=== PATIENT | female | born 1980 | race Caucasian/White ===

== ENCOUNTER 2016-05-25 05:01 | Emergency (ER) | payer MEDICAID ==
[~2016-05-25 05:01] MED LIST: ADVIL200 M1 PO; ANTIBIOTIC; CIPRO; CIPRO500 MG PO; CYCLOBENZAPRINE5 M1 PO; FLAGYL500 MG PO; FLEXERIL10 MG PO; HYDROCODON-ACE1 EA16 PO; IBUPROFEN; IBUPROFEN800 M1 PO; NO MEDS; NORCO 5/325 TAB1 TAB; NORCO 5/325 TAB1 TAB PO; OMEPRAZOLE20 M3 PO; PEPCID20 M1 PO; PRENATAL; PRENATAL1 TAB; PROTONIX20 M2 PO; TRAMADOL HCL50 MG PO; ULTRAM50 M1 PO; ZOFRAN ODT4 MG/UDTAB PO; ZOFRAN ODT8 MG/TAB; ZOFRAN8 M1 PO; [UNRECOGNIZED DRUG - REMARK]
[2016-05-25 05:55] LABS: BASO % 0.6 % (0-2); BASO ABSOLUTE COUNT 0.1 tho/cmm (0.0-0.2); EOS % 6.4 % (0-7); EOSINOPHIL ABSOLUTE COUNT 0.6 tho/cmm (0.0-0.7); HCT-HEMATOCRIT 39.4 % (34.0-49.0); HGB-HEMOGLOBIN 14.9 gm/dl (12.0-15.5); IMMATURE GRANULOCYTES ABSOLUTE 0.06 tho/cmm (0-0.03); IMMATURE GRANULOCYTES PERCENT 0.6 % (0-0.3); LYMPH % 38.5 % (20-45); LYMPH ABSOLUTE COUNT 3.6 tho/cmm (0.8-4.5); MCH (MEAN CORPUSCULAR HGB) 33.9 pg (28.0-32.0); MCV (MEAN CELL VOLUME) 89.5 fl (82.0-96.0); MEAN PLATELET VOLUME 8.3 cmc (9.4-12.4); MONOCYTE ABSOLUTE COUNT 0.8 tho/cmm (0.0-1.2); NEUTROPHIL ABSOLUTE COUNT 4.2 tho/cmm (1.6-8.0); NEUTROPHIL-AUTOMATED 4.2 tho/cmm (1.6-8.0); NEUTROPHILS % 44.9 % (40-80); PLATELET COUNT 472 tho/cmm (150-450); RED CELL DISTRIBUTION WIDTH 12.9 % (12.4-16.4); WHITE BLOOD COUNT 9.3 tho/cmm (4.0-10.0)
[2016-05-25 06:06] LABS: MCHC MEAN CORPUSCULAR HGB CONC 37.8 % (32.0-36.0)
[2016-05-25 06:12] LABS: ALB/GLOB RATIO 1.1 (0.8-2.0); ALBUMIN 3.9 g/dl (3.5-5.0); ALKALINE PHOSPHATASE 81 U/L (33-138); ALT/SGPT 18 U/L (12-78); ANION GAP 14 mmol/L (0-20); AST/SGOT 16 U/L (10-40); BILIRUBIN,TOTAL 0.6 mg/dl (0-1.5); BLOOD UREA NITROGEN 12 mg/dl (6-24); CALCIUM 8.3 mg/dl (8.5-10.5); CARBON DIOXIDE-VENOUS 24 mmol/L (22-32); CHLORIDE 108 mmol/l (96-110); CREATININE 0.61 mg/dl (0.50-1.10); GLUCOSE 101 mg/dL (70-110); LIPASE 184 U/L (73-393); POTASSIUM 3.5 mmol/L (3.7-5.1); SODIUM 142 mmol/L (135-145); eGFR VALUE FOR BLACK >90 mL/Min
[2016-05-25 06:18] LABS: PREGNANCY-SERUM NEGATIVE (NEGATIVE)
[2016-05-25 06:18] LABS: URINE BILIRUBIN NEGATIVE (NEG); URINE BLOOD NEGATIVE (NEG); URINE GLUCOSE (UA) NEGATIVE (NEG); URINE KETONE NEGATIVE (NEG); URINE LEUKOCYTE ESTERASE NEGATIVE (NEG); URINE NITRITE NEGATIVE (NEG); URINE PROTEIN NEGATIVE (NEG)
[2016-05-25 06:27] LABS: URINE APPEARANCE CLEAR; URINE COLOR YELLOW
== END 2016-05-25 07:14 ==
LOC: EDMED 05:01
PROVIDERS: Physician Assistant
DX: K92.0 Hematemesis (principal); Z72.89 Other problems related to lifestyle; Z90.49 Acquired absence of other specified parts of digestive tract; Z98.51 Tubal ligation status; Z88.0 Allergy status to penicillin; Z88.2 Allergy status to sulfonamides; F17.210 Nicotine dependence, cigarettes, uncomplicated
CPT/HCPCS: C9113; J2270; J2405; J7030